=== PATIENT | female | born 1990 | race Two or more races ===

== ENCOUNTER 2018-03-22 15:20 | Emergency (ER) | payer BC ==
[~2018-03-22] VITALS: Ht 160 cm; Wt 77.1 kg
[2018-03-22 16:17] VITALS: BP 131/70
[2018-03-22] MEDS ORDERED: Norco 5mg/325mg tab ORAL ONE (16:30)
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
[2018-03-22] MEDS ORDERED: ROBAXIN500 MG PO (17:15)
[2018-03-22] MEDS ORDERED: IBUPROFEN600 MG ORAL (17:15)
[2018-03-22 17:59] VITALS: BP 131/70
== END 2018-03-22 17:59 | disposition home or self-care (01) ==
LOC: EMR 16:08
DX: S40.012A Contusion of left shoulder, initial encounter (principal); S10.91XA Abrasion of unspecified part of neck, initial encounter; S16.1XXA Strain of muscle, fascia and tendon at neck level, initial encounter; V43.52XA Car driver injured in collision with other type car in traffic accident, initial encounter; Y92.410 Unspecified street and highway as the place of occurrence of the external cause
CPT/HCPCS: 99283